=== PATIENT | male | born 1955 | race Caucasian/White ===

== ENCOUNTER 2019-04-09 | Emergency (ER) | payer OTHER ==
[2019-04-09] MEDS ORDERED: LEVOTHYROXIN25 MC1 PO (10:06)
[2019-04-09] MEDS ORDERED: FLEXERIL PO (11:50)
[2019-04-09] MEDS ORDERED: MEDDOSEPAK PO (11:50)
== END 2019-04-09 12:10 | disposition home or self-care (01) | DRG 563 ==
DX: S39.012A Strain of muscle, fascia and tendon of lower back, initial encounter (principal); M62.830 Muscle spasm of back; X50.0XXA Overexertion from strenuous movement or load, initial encounter; Y93.89 Activity, other specified

== ENCOUNTER 2023-03-23 13:51 | Emergency (ER) | payer OTHER ==
[~2023-03-23] VITALS: Ht 180.3 cm; Wt 95.0 kg
[~2023-03-23 13:51] MED LIST: FLEXERIL PO; LEVOTHYROXIN25 MC1 PO; MEDDOSEPAK PO
[2023-03-23 13:57] VITALS: BP 162/91
[2023-03-23 14:00] VITALS: BP 154/87
[2023-03-23] MEDS ORDERED: VENTOLIN HFA108 MCG PO ×2 (14:54→15:23)
[2023-03-23] MEDS ORDERED: ZPAK PO ×2 (14:54→15:23)
[2023-03-23] MEDS ORDERED: PREDNISONE50 MG PO ×2 (14:54→15:23)
[2023-03-23 14:58] VITALS: BP 148/86
== END 2023-03-23 14:59 | disposition home or self-care (01) | DRG 153 ==
LOC: ED 13:51
DX: J06.9 Acute upper respiratory infection, unspecified (principal); Z20.822 Contact with and (suspected) exposure to COVID-19

== ENCOUNTER 2024-03-15 13:06 | Emergency (ER) | payer OTHER ==
[~2024-03-15] VITALS: Ht 180.3 cm; Wt 97.4 kg
[~2024-03-15 13:06] MED LIST changes: +PREDNISONE50 MG PO; +VENTOLIN HFA108 MCG PO; +ZPAK PO
[2024-03-15 14:28] VITALS: BP 140/73
[2024-03-15 14:30] VITALS: BP 125/72
[2024-03-15 14:45] VITALS: BP 123/67
[2024-03-15] MEDS ORDERED: predniSONE 20 MG/TAB PO ONE (14:50)
[2024-03-15] MEDS ORDERED: IPRATROPIUM-Albuterol 0.5MG-2.5MG/3 ML NEB ONE ×2 (14:50)
[2024-03-15 15:01] VITALS: BP 126/78
[2024-03-15 15:16] VITALS: BP 131/76
[2024-03-15] MEDS ORDERED: IPRATROPIU0.5 MG/3 M IN (15:49)
[2024-03-15] MEDS ORDERED: PREDNISONE50 MG PO (15:49)
[2024-03-15] MEDS ORDERED: ZPAK PO (15:49)
[2024-03-15] MEDS ORDERED: NEBULIZER PO (15:49)
[2024-03-15 15:54] VITALS: BP 131/76
== END 2024-03-15 16:00 | disposition home or self-care (01) | DRG 153 ==
LOC: ED 13:06
DX: J06.9 Acute upper respiratory infection, unspecified (principal); Z20.822 Contact with and (suspected) exposure to COVID-19

== ENCOUNTER 2024-04-17 17:51 | Emergency (ER) | payer OTHER ==
[~2024-04-17] VITALS: Ht 180.3 cm; Wt 85.0 kg
[2024-04-17] VITALS (7 sets, daily range): BP systolic 134–164; BP diastolic 76–94
[~2024-04-17 17:51] MED LIST changes: +IPRATROPIU0.5 MG/3 M IN; +NEBULIZER PO
[2024-04-17] MEDS ORDERED: predniSONE 20 MG/TAB PO ONE (18:10)
[2024-04-17] MEDS ORDERED: ALBUTEROL SULFATE 2.5 MG VIAL IN ONE ×2 (18:10)
[2024-04-17] MEDS ORDERED: IPRATROPIUM-Albuterol 0.5MG-2.5MG/3 ML NEB ONE (18:10)
[2024-04-17 19:25] LABS: BASO% 0.6 % (0-3); EOS% 2.5 % (0-8); IMMATURE GRANULOCYTES 0.3 % (0.0-5.0); LYMPH% 17.7 % (15-41); MEAN CELL VOLUME 94.6 fL CALC (80.0-100.0); MEAN CORPUSCULAR HGB 33.1 pG CALC (26.0-32.0); MONO% 4.5 % (2-13); NEUT# 11.71 thou/uL (1.82-7.42); NEUT% 74.4 % (42-76); RED BLOOD COUNT 4.23 mill/uL (4.70-6.10); RED CELL DISTRI WIDTH 12.3 % (11.5-15.5)
[2024-04-17 19:38] LABS: ALBUMIN 4.4 g/dL (3.2-5.0); BILIRUBIN, TOTAL 0.7 mg/dL (0.2-1.3); CREATININE 1.1 mg/dL (0.7-1.3); POTASSIUM 3.7 mmol/l (3.5-5.1); TOTAL PROTEIN 7.6 g/dL (6.3-8.2)
[2024-04-17 19:47] LABS: D-DIMER 0.64 mg/L (0.19-0.60)
[2024-04-17] MEDS ORDERED: DOXYCYCLINE HYCLATE 100 MG/CAP PO ONE (20:10)
[2024-04-17] MEDS ORDERED: VIBRAMYCIN100 M2 PO (20:12)
[2024-04-17] MEDS ORDERED: ALBUTEROL SUL0.083 % IN (20:12)
[2024-04-17] MEDS ORDERED: PREDNISONE50 MG PO (20:12)
== END 2024-04-17 20:39 | disposition home or self-care (01) | DRG 203 ==
LOC: ED 17:51
PROVIDERS: Family Medicine
DX: J20.9 Acute bronchitis, unspecified (principal); Z20.822 Contact with and (suspected) exposure to COVID-19

== ENCOUNTER 2024-04-25 20:40 | Emergency (ER) | payer OTHER ==
[~2024-04-25] VITALS: Ht 180.3 cm; Wt 95.0 kg
[2024-04-25] VITALS (7 sets, daily range): BP systolic 125–156; BP diastolic 67–81
[~2024-04-25 20:40] MED LIST changes: +ALBUTEROL SUL0.083 % IN; +VIBRAMYCIN100 M2 PO
[2024-04-25] MEDS ORDERED: methylPREDNISolone SODIUM SUCC 125 MG/2 ML SDV IV ONE (21:20)
[2024-04-25] MEDS ORDERED: IPRATROPIUM-Albuterol 0.5MG-2.5MG/3 ML NEB ONE (21:20)
[2024-04-25 21:33] LABS: BASO% 0.6 % (0-3); EOS% 9.4 % (0-8); HEMATOCRIT 41.3 % (39.0-50.0); HEMOGLOBIN 14.4 g/dl (14.0-18.0); IMMATURE GRANULOCYTES 0.3 % (0.0-5.0); LYMPH% 17.4 % (15-41); MEAN CELL VOLUME 94.7 fL CALC (80.0-100.0); MEAN CORPUSCULAR HGB CONC 34.9 g/dL CAL (32.0-36.0); MONO% 5.9 % (2-13); NEUT# 10.27 thou/uL (1.82-7.42); NEUT% 66.4 % (42-76); RED BLOOD COUNT 4.36 mill/uL (4.70-6.10); RED CELL DISTRI WIDTH 12.5 % (11.5-15.5)
[2024-04-25 21:49] LABS: ALBUMIN 4.2 g/dL (3.2-5.0); ALKALINE PHOSPHATASE 61 u/l (38-126); ANION GAP 11 (6-22 (CALC)); BILIRUBIN, TOTAL 0.9 mg/dL (0.2-1.3); BUN 20 mg/dL (8-23); BUN/CREATININE RATIO 19 (12-20 (CALC)); CARBON DIOXIDE 25 mmol/l (22-30); CHLORIDE 107 mmol/l (95-108); CREATININE 1.1 mg/dL (0.7-1.3); ESTIMATED GFR 72 ML/MIN (>=90 (CALC)); POTASSIUM 4.2 mmol/l (3.5-5.1); SGOT/AST 43 u/l (19-48); SODIUM 138 mmol/l (137-146); TOTAL PROTEIN 7.5 g/dL (6.3-8.2)
[2024-04-25] MEDS ORDERED: ALBUTEROL SULFATE 2.5 MG VIAL IN ONE (22:40)
[2024-04-25] MEDS ORDERED: Acetaminophen 300 MG/Codeine 30 MG/COMBO PO ONE (22:45)
[2024-04-25] MEDS ORDERED: AMOX/K CLAV875 M1 PO (23:57)
[2024-04-26 00:01] VITALS: BP 128/74
[2024-04-26 00:15] VITALS: BP 128/74
== END 2024-04-26 00:16 | disposition home or self-care (01) | DRG 153 ==
LOC: ED 20:40
PROVIDERS: Family Medicine
DX: J32.9 Chronic sinusitis, unspecified (principal); J98.01 Acute bronchospasm; Z20.822 Contact with and (suspected) exposure to COVID-19; Z87.891 Personal history of nicotine dependence